=== PATIENT | female | born 1970 | race African-American/Black ===

== ENCOUNTER 2017-03-01 09:23 | Emergency (ER) | payer SELFPAY ==
[~2017-03-01] VITALS: Ht 154.9 cm; Wt 95.0 kg
[~2017-03-01 09:23] MED LIST: ATENOLOL; PROZAC
[2017-03-01] MEDS ORDERED: ATEN50TA PO (09:38)
[2017-03-01] MEDS ORDERED: IBUPROFEN 800MG TABLET PO ONE (10:15)
[2017-03-01] MEDS ORDERED: HYDROCODONE/ACETAMINOPHEN 5/325MG TABLET PO ONE (10:15)
== END 2017-03-01 12:28 | disposition home or self-care (01) ==
LOC: ER 10:36
DX: S93.401A Sprain of unspecified ligament of right ankle, initial encounter (principal); S80.00XA Contusion of unspecified knee, initial encounter; I10 Essential (primary) hypertension; W01.0XXA Fall on same level from slipping, tripping and stumbling without subsequent striking against object, initial encounter; Y93.89 Activity, other specified; Y92.89 Other specified places as the place of occurrence of the external cause; Y99.8 Other external cause status
CPT/HCPCS: 73562; 73610; 81025; 99284